=== PATIENT | male | born 1985 | race Caucasian/White ===

== ENCOUNTER 2017-02-06 15:40 | Emergency (ER) | payer OTHER ==
[~2017-02-06] VITALS: Ht 177.8 cm; Wt 93.6 kg
[2017-02-06] MEDS ORDERED: PERCOCET 5/31 TABLET PO (16:42)
[2017-02-06] MEDS ORDERED: DILAUDID4 MG PO (17:43)
[2017-02-06 17:58] VITALS: BP 127/103
== END 2017-02-06 17:58 | disposition home or self-care (01) ==
LOC: EME 15:40
DX: R07.9 Chest pain, unspecified (principal); M54.5 Low back pain; S22.20XD Unspecified fracture of sternum, subsequent encounter for fracture with routine healing; S32.009D Unspecified fracture of unspecified lumbar vertebra, subsequent encounter for fracture with routine healing; V48 Car occupant injured in noncollision transport accident; F17.200 Nicotine dependence, unspecified, uncomplicated
CPT/HCPCS: 71020; 85610; 99281; 99283; J2270